=== PATIENT | female | born 1930 | race Caucasian/White ===

== ENCOUNTER 2017-08-19 06:56 | Inpatient (IN) | payer MEDICARE ==
[~2017-08-19] VITALS: Ht 170.2 cm; Wt 101.7 kg
[2017-08-19] VITALS (57 sets, daily range): BP systolic 58–231; BP diastolic 31–118; PULSE 90–132; RESP 15–35; TEMP 98.3–101.6; O2SAT 85–96
[2017-08-19] MEDS ORDERED: PANT40TA3 PO (07:12)
[2017-08-19] MEDS ORDERED: VITA2000 PO (07:12)
[2017-08-19] MEDS ORDERED: HYDR12.57 PO (07:12)
[2017-08-19] MEDS ORDERED: METO25TA3 PO (07:12)
[2017-08-19] MEDS ORDERED: WARF4TAB51 PO (07:12)
[2017-08-19] MEDS ORDERED: CELE1CAP11 PO (07:12)
[2017-08-19] MEDS ORDERED: SODIUM CHLORID 0.9% 500 ML INJ 500 ML IV ONE ×5 (07:15→11:15)
[2017-08-19] MEDS ORDERED: ACETAMINOPHEN 325 MG TAB PO ONE (07:15)
--- NOTE | 2017-08-19 07:33 | RADRPT ---
EXAM DATE/TIME: 08/19/2017 07:15 [facility] COMPARISON: No previous studies available for comparison. INDICATIONS : Fever, weakness. MEDICAL HISTORY : Congestive heart failure. Hypertension Deep venous thrombosis. Diabetic. PE. GERD. SURGICAL HISTORY : Hysterectomy. Partial thyroidectomy. ENCOUNTER: Initial ACUITY: 2 days PAIN SCORE: 0/10 LOCATION: chest FINDINGS: A single view of the chest demonstrates the lungs to be symmetrically aerated without evidence of mas s, infiltrate or effusion. The cardiomediastinal contours are unremarkable. Osseous structures are intact. CONCLUSION: 1. No acute cardiopulmonary disease. William Nielson MD on August 19, 2017 at 7:31 Board Certified Radiologist. This report was verified electronically.
[2017-08-19 07:52] LABS: AUTOMATED NEUTROPHIL # 15.2 TH/MM3 (1.8-7.7); BASOPHIL # 0.3 TH/MM3 (0-0.2); BASOPHIL % 1.8 % (0.0-2.0); HEMATOCRIT 40.5 % (35.0-46.0); LYMPH % 2.1 % (9.0-44.0); LYMPHOCYTE # 0.4 TH/MM3 (1.0-4.8); MEAN CELL VOLUME 82.6 FL (80.0-100.0); MEAN CORPUSCULAR HEMOGLOBIN 26.2 PG (27.0-34.0); MEAN CORPUSCULAR HGB CONC 31.7 % (32.0-36.0); MONO % 4.6 % (0.0-8.0); NEUT % 91.5 % (16.0-70.0); PLATELET COUNT 128 TH/MM3 (150-450); RED CELL DISTRIBUTION WIDTH 14.6 % (11.6-17.2); WHITE BLOOD COUNT 16.8 TH/MM3 (4.0-11.0)
--- NOTE | 2017-08-19 08:00 | PD ---
HPI Chief Complaint: Cold / Flu Symptoms Time Seen by Provider: 07:05 Travel History International Travel<30 days: No Contact w/Intl Traveler<30days: No Traveled to known affect area: No History of Present Illness HPI 87-year-old female presents by ambulance with note of vomiting, body aches, cough and general ill feeling over the past 10 days. She has an exposure to someone who was flu positive. She states she had a flu shot this year. She denies any other concurrent complaints. She states she has not taken any of her medication for 2 days given how bad she has felt. [place] is down here for the winter. History is limited currently from patient as she states she doesn't remember some stuff. PFS Past Medical History Narrative Medical Confirmed with patient and reviewed with nurse Tasha Anticoagulant Therapy: Yes Atrial Fibrillation: Yes Cardiovascular Problems: Yes (A-FIb) Congestive Heart Failure: Yes Diabetes: Yes (diet controlled) Patient Takes Glucophage: No Deep Vein Thrombosis: Yes (possible) GERD: Yes Hypertension: Yes Respiratory: Yes (pulmonary embolism) Immunizations Current: Yes Influenza Vaccination: Yes Past Surgical History Narrative Surgical Confirmed with patient and reviewed with nurse Endocrine Surgery: Yes (partial thyroidectomy) Eye Surgery: Yes (cataracts) Hysterectomy: Yes Social History Alcohol Use: No Tobacco Use: No (never) Substance Use: No Allergies-Medications (Allergen,Severity, Reaction): Coded Allergies: Penicillins (Verified Allergy, Intermediate, rash, 08/19/17) Reported Meds & Prescriptions Reported Meds & Active Scripts Active Reported Pantoprazole (Pantoprazole Sodium) 40 Mg Tab 40 Mg PO DAILY Vitamin D3 (Cholecalciferol) 2,000 Unit Cap 2,000 Units PO DAILY Warfarin 2 Mg Tab 4 Mg PO DAILY Hydrochlorothiazide 12.5 Mg Cap 12.5 Mg PO DAILY Metoprolol Tartrate 25 Mg Tab 12.5 Mg PO BID Celecoxib 50 Mg Cap Unknown Dose PO BID Review of Systems ROS Limitations: Poor Historian Except as stated in HPI: all other systems reviewed are Neg Physical Exam Exam Limitations: Poor Historian Narrative GENERAL: Well-nourished, well-developed patient. SKIN: Warm and dry. HEAD: Normocephalic and atraumatic. EYES: No injection or drainage. ENT: No nasal drainage noted. NECK: Supple, trachea midline. CARDIOVASCULAR: irregular rate and rhythm RESPIRATORY: Breath sounds equal bilaterally. No accessory muscle use. GASTROINTESTINAL: Abdomen soft, non-tender, nondistended. EXTREMITIES: No edema. NEUROLOGICAL: Awake, moves all extremities and sensory grossly within normal limits. Normal speech. Data Data Last Documented VS Vital Signs Date Time Temp Pulse Resp B/P (MAP) Pulse Ox O2 Delivery O2 Flow Rate FiO2 08/19/17 09:05 114 18 96/62 (73) 94 Nasal Cannula 2.00 08/19/17 07:00 101.6 Orders Orders Sepsis Workup Initiated (08/19/17 ) Electrocardiogram (08/19/17 07:11) Complete Blood Count With Diff (08/19/17 07:11) Comprehensive Metabolic Panel (08/19/17 07:11) Prothrombin Time / Inr (Pt) (08/19/17 07:11) Act Partial Throm Time (Ptt) (08/19/17 07:11) Lactic Acid Sepsis Protocol (08/19/17 07:11) Magnesium (Mg) (08/19/17 07:11) Phosphorus (Po4) (08/19/17 07:11) Ckmb (Isoenzyme) Profile (08/19/17 07:11) Troponin I (08/19/17 07:11) Urinalysis - C+S If Indicated (08/19/17 07:11) Influenzae A/B Antigen (08/19/17 07:11) Blood Culture (08/19/17 07:11) Chest, Single Ap (08/19/17 07:11) Ecg Monitoring (08/19/17 07:11) Iv Access Insert/Monitor (08/19/17 07:11) Oximetry (08/19/17 07:11) Acetaminophen (Tylenol) (08/19/17 07:15) B-Type Natriuretic Peptide (08/19/17 07:11) Sodium Chlorid 0.9% 500 Ml Inj (Ns 500 M (08/19/17 07:15) Diltiazem Inj (Cardizem Inj) (08/19/17 08:15) CKMB (08/19/17 07:37) CKMB% (08/19/17 07:37) Potassium Chlor 20 Meq Premix (Kcl 20 Me (08/19/17 08:30) Vancomycin Inj (Vancomycin Inj) (08/19/17 08:17) Aztreonam Inj (Azactam Inj) (08/19/17 08:17) Metronidazole 500 Mg Inj (Flagyl 500 Mg (08/19/17 08:17) Sodium Chlorid 0.9% 500 Ml Inj (Ns 500 M (08/19/17 08:30) Urinary Catheter Insert/Apply (08/19/17 08:21) Sodium Chlorid 0.9% 500 Ml Inj (Ns 500 M (08/19/17 09:30) Admit Order (Ed Use Only) (08/19/17 09:19) Labs Laboratory Tests Test 08/19/17 07:37 08/19/17 09:00 White Blood Count 16.8 TH/MM3 Red Blood Count 4.90 MIL/MM3 Hemoglobin 12.8 GM/DL Hematocrit 40.5 % Mean Corpuscular Volume 82.6 FL Mean Corpuscular Hemoglobin 26.2 PG Mean Corpuscular Hemoglobin Concent 31.7 % Red Cell Distribution Width 14.6 % Platelet Count 128 TH/MM3 Mean Platelet Volume 9.3 FL Neutrophils (%) (Auto) 91.5 % Lymphocytes (%) (Auto) 2.1 % Monocytes (%) (Auto) 4.6 % Eosinophils (%) (Auto) 0.0 % Basophils (%) (Auto) 1.8 % Neutrophils # (Auto) 15.2 TH/MM3 Lymphocytes # (Auto) 0.4 TH/MM3 Monocytes # (Auto) 0.8 TH/MM3 Eosinophils # (Auto) 0.0 TH/MM3 Basophils # (Auto) 0.3 TH/MM3 CBC Comment AUTO DIFF Differential Comment FINAL DIFF MANUAL Platelet Estimate LOW Platelet Morphology Comment NORMAL Prothrombin Time 20.3 SEC Prothromb Time International Ratio 2.0 RATIO Activated Partial Thromboplast Time 36.1 SEC Blood Urea Nitrogen 16 MG/DL Creatinine 1.20 MG/DL Random Glucose 140 MG/DL Total Protein 6.7 GM/DL Albumin 2.7 GM/DL Calcium Level 7.7 MG/DL Phosphorus Level 1.1 MG/DL Magnesium Level 1.3 MG/DL Alkaline Phosphatase 64 U/L Aspartate Amino Transf (AST/SGOT) 21 U/L Alanine Aminotransferase (ALT/SGPT) 20 U/L Total Bilirubin 1.8 MG/DL Sodium Level 136 MEQ/L Potassium Level 2.5 MEQ/L Chloride Level 102 MEQ/L Carbon Dioxide Level 21.7 MEQ/L Anion Gap 12 MEQ/L Estimat Glomerular Filtration Rate 42 ML/MIN Lactic Acid Level 2.4 mmol/L Total Creatine Kinase 204 U/L Creatine Kinase MB 0.8 NG/ML Creatine Kinase MB % 0.4 % Troponin I 0.04 NG/ML B-Type Natriuretic Peptide 540 PG/ML Urine Collection Type CATH Urine Color YELLOW Urine Turbidity SLIGHT Urine pH 6.0 Urine Specific Ralph 1.016 Urine Protein 300 OR GREATER mg/dL Urine Glucose (UA) NEG mg/dL Urine Ketones TRACE mg/dL Urine Occult Blood LARGE Urine Nitrite NEG Urine Bilirubin NEG Urine Leukocyte Esterase SMALL Urine RBC 25-49 /hpf Urine WBC INNUM /hpf Urine WBC Clumps MOD Urine Bacteria MANY /hpf Microscopic Urinalysis Comment CULTURE INDICATED Urine Collection Time 09:00 [facility] Medical Decision Making Medical Screen Exam Complete: Yes Emergency Medical Condition: Yes Medical Record Reviewed: Yes (past history confirmed) Interpretation(s) EKG is atrial fibrillation at 120 without STEMI criteria CBC & BMP Diagram 08/19/17 07:37 Total Protein 6.7, Albumin 2.7 L, Calcium Level 7.7 L, Phosphorus Level 1.1 L, Magnesium Level 1.3 L, Alkaline Phosphatase 64, Aspartate Amino Transf (AST/SGOT ) 21, Alanine Aminotransferase (ALT/SGPT) 20, Total Bilirubin 1.8 H Last 24 hours Impressions Chest X-Ray 08/19/17 0711 Signed Impressions: Service Date/Time: Saturday, August 19, 2017 07:15 - CONCLUSION: 1. No acute cardiopulmonary disease. William Nielson MD ua with uti Last 24 hours Impressions Chest X-Ray 08/19/17 0711 Signed Impressions: Service Date/Time: Saturday, August 19, 2017 07:15 - CONCLUSION: 1. No acute cardiopulmonary disease. William Nielson MD Abdomen/Pelvis CT 08/19/17 0000 Signed Impressions: Service Date/Time: Saturday, August 19, 2017 10:06 - CONCLUSION: Right kidney is enlarged with marked perinephric stranding may be related to recent obstruction. I do not see any active stone either in the collecting system of the right ureter. There is a Hendricks catheter in the bladder also without evidence of stone. No other stones are noted. 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 There may be a small splenic arterial aneurysm as well also benign and does not need workup. Ronni Dove MD Differential Diagnosis Renal failure, URI, pneumonia, heart failure, electrolyte abnormality Narrative Course Will check blood work, chest x-ray, influenza and dose with 500 cc normal saline bolus while awaiting chest x-ray and initial blood work as patient has already had 800 cc with the ambulance team will give low dose of cardizem of 10mg for heart rate control as off meds, patient with elevated lactate with multiple Sirs criteria, will give broad- spectrum coverage with aztreonam, Flagyl, vancomycin while awaiting workup, will repeat 500 cc normal saline bolus, patient has critically low potassium so we'll start replacement of this as well and she will need admission to the hospital Had nurse cycle blood pressure before Cardizem and was systolic of 96 so Cardizem was held. We'll give additional IV fluids. We'll monitor in the ICU area. Patient here has had no episodes of emesis. She was updated and agrees to plan Urinalysis shows signs of infection. Given hypotension will discuss with pharmacy adding gentamicin. After discussion with pharmacy they recommend gentamicin 80 mg IV 1 and they will follow along for medication adjustment. Patient will get additional IV fluids. Admitting attending updated. He agrees to adding on CT scan abdomen pelvis as well to rule out kidney stone or other intra-abdominal process with urinary tract infection. He will place pharmacy consult. Patient does state that she recently had a urinary tract infection and followed with Dr. monsalve now that her is in the room and able to provide additional history. patient has not had her 30ml/kg yet and still hypotensive so will repeat ivf and monitor Critical Care Narrative Aggregate critical care time was 45 minutes. Time to perform other separately billable procedures was not included in the critical care time. My time did not include minutes spent treating any other patients simultaneously or on activities that did not directly contribute to the patient's treatment. The services I provided to this patient were to treat and/or prevent clinically significant deterioration that could result in: Septic shock, I provided critical care services requiring my management, as noted below: Chart data review, documentation time, medication orders and management, vital sign assessments/reviewing monitor data, ordering and reviewing lab tests, ordering and interpreting/reviewing x-rays and diagnostic studies, care of the patient and discussion of the patient with the admitting physicians. Sepsis Criteria SIRS Criteria (2 or more): Temp > 100.9 or < 96.8, Heart rate over 90, WBC > 24857, < 4000 or > 10% bands Sepsis Criteria (SIRS+source): Infect source susp/known Severe Sepsis (+one): Lactate >2 Criteria Outcome: Meets severe sepsis criteria Physician Communication Physician Communication dr trevizo agrees to admit, will place in icu given pressure now dr trevizo will place pharmacy consult and updated Diagnosis Primary Impression: Sepsis Qualified Codes: A41.9 - Sepsis, unspecified organism Additional Impressions: Hypokalemia Atrial fibrillation with RVR Pyelonephritis Admitting Information Admitting Physician Requests: Admit Christine James MD Aug 19, 2017 08:00
[2017-08-19 08:09] LABS: APTT (PATIENT) 36.1 SEC (24.3-30.1); PROTHROMBIN TIME - PATIENT 20.3 SEC (9.8-11.6)
[2017-08-19 08:11] LABS: HEMO FLAGS AUTO DIFF
[2017-08-19 08:15] LABS: ALT (GPT) 20 U/L (10-53); AST (GOT) 21 U/L (15-37); BLOOD UREA NITROGEN 16 MG/DL (7-18); CHLORIDE 102 MEQ/L (98-107); GLOMERULAR FILTRATION RATE 42 ML/MIN (>89); MAGNESIUM 1.3 MG/DL (1.5-2.5); SODIUM (NA) 136 MEQ/L (136-145); TOTAL BILIRUBIN ADULT 1.8 MG/DL (0.2-1.0)
[2017-08-19] MEDS ORDERED: DILTIAZEM HCL 25 MG/5 ML VIAL IV ONE (08:15)
[2017-08-19 08:17] LABS: POTASSIUM 2.5 MEQ/L (3.5-5.1)
[2017-08-19] MEDS ORDERED: AZTREONAM INJ 2,000 MG in SODIUM CHLORIDE 0.9% INJ 100 ML IV STA (08:17)
[2017-08-19] MEDS ORDERED: VANCOMYCIN INJ 1,000 MG in SODIUM CHLOR 0.9% 250 ML INJ 250 ML IV STA (08:17)
[2017-08-19] MEDS ORDERED: metroNIDAZOLE 500 MG INJ 100 ML IV STA (08:17)
[2017-08-19 08:19] LABS: ALKALINE PHOSPHATASE 64 U/L (45-117); ANION GAP 12 MEQ/L (5-15); BICARBONATE 21.7 MEQ/L (21.0-32.0); CREATINE KINASE 204 U/L (26-192)
[2017-08-19] MEDS ORDERED: POTASSIUM CHLOR 20 MEQ PREMIX 100 ML IV ONE (08:30)
[2017-08-19 08:48] LABS: CKMB 0.8 NG/ML (0.5-3.6)
[2017-08-19 09:11] LABS: PLATELET ESTIMATE SMEAR LOW (NORMAL); PLATELET MORPHOLOGY NORMAL (NORMAL); SCAN/DIFF FINAL DIFF MANUAL
[2017-08-19 09:18] LABS: BLOOD, URINE LARGE (NEG); GLUCOSE,URINE NEG (NEG); KETONE, URINE TRACE mg/dL (NEG); NITRITE,URINE NEG (NEG)
[2017-08-19 09:22] LABS: METHOD OF COLLECTION CATH; URINE COLOR YELLOW (YELLW/STRAW)
[2017-08-19 09:23] LABS: BACTERIA, URINE MANY /hpf; COMMENT (UR) CULTURE INDICATED; CULTURE IF INDICATED CULTURE INDICATED; WBC, URINE INNUM /hpf (0-5)
[2017-08-19] MEDS ORDERED: MAGNESIUM HYDROXIDE SUSP 30 ML CUP PO PRN (09:30)
[2017-08-19] MEDS ORDERED: BISACODYL 10 MG SUPP RECTAL PRN (09:30)
[2017-08-19] MEDS ORDERED: NALOXONE HCL 0.4 MG/ML AMP IV PUSH PRN (09:30)
[2017-08-19] MEDS ORDERED: SODIUM CHLORIDE 0.9% FLUSH 10 ML FLUSH IV FLUSH PRN (09:30)
[2017-08-19] MEDS ORDERED: LACTULOSE SYRUP 20 GM/30 ML CUP PO PRN (09:30)
[2017-08-19] MEDS ORDERED: SENNOSIDES 8.6 MG TAB PO PRN (09:30)
[2017-08-19] MEDS ORDERED: GENTAMICIN SULFATE 80 MG/2 ML VIAL IV ONE ×2 (09:45→12:30)
[2017-08-19] MEDS ORDERED: Gentamicin Consult Pharmacy 1 EA OTHER SCH (09:45)
[2017-08-19 09:47] LABS: LACTIC ACID GHOST NOT REPORTABLE
--- NOTE | 2017-08-19 10:30 | RADRPT ---
EXAM DATE/TIME: 08/19/2017 10:06 [facility] COMPARISON: No previous studies available for comparison. INDICATIONS : Gemeralized bodyaches and vomiting. ORAL CONTRAST: No oral contrast ingested. RADIATION DOSE: 24.39 CTDIvol (mGy) MEDICAL HISTORY : Congestive heart failure. Deep venous thrombosis. Gastroesophageal reflux disease.Anticoagulant thera py. Hypertension. Diabetes. SURGICAL HISTORY : Hysterectomy. Thyroidectomy. ENCOUNTER: Initial ACUITY: 2 weeks PAIN SCALE: 4/10 LOCATION: pelvis abdomen TECHNIQUE: Volumetric scanning of the abdomen and pelvis was performed. Using automated exposure control and ad justment of the mA and/or kV according to patient size, radiation dose was kept as low as reasonably achievable to obtain optimal diagnostic quality images. DICOM format image data is available electro nically for review and comparison. FINDINGS: LOWER LUNGS: The visualized lower lungs are clear. LIVER: Homogeneous density a few small hypodensities on this unenhanced study probably small cysts.. There is no dilation of the biliary tree. No calcified gallstones. SPLEEN: Normal size without lesion. PANCREAS: Within normal limits. KIDNEYS: Right kidney is abnormal. It is larger than the left and is showing some perinephric stranding and hy dronephrosis. I do not see any stone within the collecting system and the ureter is not appreciably d ilated. There is a Hendricks catheter in a decompressed bladder. Left side unremarkable. There are small bilateral renal cysts. 1 cm curvilinear calcification in the superior right hilum could be renal tatyana rial aneurysm almost always asymptomatic in a woman this age ADRENAL GLANDS: Within normal limits. VASCULAR: There is no aortic aneurysm. BOWEL/MESENTERY: The stomach, small bowel, and colon demonstrate no acute abnormality. There is no free intraperitone al air or fluid. ABDOMINAL WALL: Within normal limits. RETROPERITONEUM: There is no lymphadenopathy. BLADDER: Hendricks catheter in place. REPRODUCTIVE: Within normal limits. INGUINAL: There is no lymphadenopathy or hernia. MUSCULOSKELETAL: Within normal limits for patient age. CONCLUSION: Right kidney is enlarged with marked perinephric stranding may be related to recent obstruction. I do not see any active stone either in the collecting system of the right ureter. There is a Hendricks karsten ter in the bladder also without evidence of stone. No other stones are noted. 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 There may be a small splenic arterial ane urysm as well also benign and does not need workup. Ronni Dove MD on August 19, 2017 at 10:20 Board Certified Radiologist. This report was verified electronically.
[2017-08-19] MEDS ORDERED: ENOXAPARIN SODIUM 40 MG/0.4 ML SYRINGE SQ SCH (11:00)
[2017-08-19] MEDS: POTASSIUM CHLOR 20 MEQ PREMIX 100 ML IV SCH ×2 (11:10→13:17)
[2017-08-19] MEDS: SODIUM CHLOR 0.9% 1000 ML INJ 1,000 ML IV SCH ×3 (12:16→21:57)
[2017-08-19] MEDS: MAGNESIUM SULFATE 1 GM PREMIX 100 ML IV SCH ×4 (12:29→17:00)
[2017-08-19] MEDS ORDERED: SODIUM CHLOR 0.9% 1000 ML INJ 1,000 ML IV ONE ×3 (12:30→22:00)
[2017-08-19] MEDS ORDERED: GENTAMICIN/SOD CHL 80 MG/100 ML IV ONE (12:45)
[2017-08-19] MEDS ORDERED: CHLORHEXIDINE GLUCONATE 2 % 1 PACK (2 CLOTHS)(extra cloths) TOPICAL PRN (12:45)
--- NOTE | 2017-08-19 13:16 | HHI.HP ---
[facility] Primary Care Physician Non-Staff Admission Diagnosis sepsis, hypokalemia Diagnoses: Chief Complaint: Generalized weakness, cough, chills and fever. Travel History International Travel<30 Days: No Contact w/Intl Traveler <30 Da: No Traveled to Known Affected Are: No Sepsis Criteria SIRS Criteria (2 or more): Temp > 100.9 or < 96.8, Heart rate over 90, WBC > 57534, < 4000 or > 10% bands Sepsis Criteria (SIRS+source): Infect source susp/known Severe Sepsis (+one): Lactate >2 Septic Shock Criteria: Unresponsive to 30ml/kg fluid bolus Criteria Outcome: Meets SIRS criteria, Meets sepsis criteria, Meets severe sepsis criteria, Meets septic shock criteria History of Present Illness Ms. Jeffries is a pleasant 87-year-old female with a history of atrial fibrillation who presented to the emergency department on 12/18/2016 due to generalized weakness, body aches and mild fever as well as chills. Approximately 4 weeks prior to this admission patient experienced flulike symptoms. Her daughter had flu. On 08/16/2017 patient felt very tired and weak. She also had stomach upset and dry heaves. In the last few days she has been experiencing low-grade fever and chills. She also reports some cough as well. She also reports some discomfort on the right side of her back. She reported hematuria in June. She does report increased urinary frequency but no dysuria or hematuria. ED workup indicated possible UTI. On arrival patient's blood pressure 135/66, heart rate 123, temperature 101.6, respiration 20, pulse oximetry 93% to 95% on 2 L of oxygen. WBC 16.8 with neutrophils 91.5%. Sodium 136, potassium 2.5, creatinine 1.20, lactic acid 2.4 later increased to 3.0. Urinalysis was indicative of UTI. CT abdomen pelvis indicated right-sided perinephric stranding. Agent was subsequently admitted to ICU. Patient received fluid boluses in the ED, aztreonam, Flagyl, vancomycin and gentamicin in the ED. Review of Systems Except as stated in HPI: all other systems reviewed are Neg Past Family Social History Past Medical History Atrial fibrillation, hypertension, pulmonary embolism Past Surgical History Partial thyroidectomy, cataract surgery, hysterectomy Reported Medications Pantoprazole (Pantoprazole Sodium) 40 Mg Tab 40 Mg PO DAILY Vitamin D3 (Cholecalciferol) 2,000 Unit Cap 2,000 Units PO DAILY Warfarin 2 Mg Tab 4 Mg PO DAILY Hydrochlorothiazide 12.5 Mg Cap 12.5 Mg PO DAILY Metoprolol Tartrate 25 Mg Tab 12.5 Mg PO BID Celecoxib 50 Mg Cap Unknown Dose PO BID Allergies: Coded Allergies: Penicillins (Verified Allergy, Intermediate, rash, 08/19/17) Family History No family history of cancer, Alzheimer's or Parkinson's. Social History Patient denies using tobacco, alcohol or illicit drugs. Physical Exam Vital Signs Vital Signs Date Time Temp Pulse Resp B/P (MAP) Pulse Ox O2 Delivery O2 Flow Rate FiO2 08/19/17 12:07 95 Nasal Cannula 2.00 08/19/17 11:43 86 18 81/56 (64) 95 2.00 08/19/17 10:58 92 18 82/57 (65) 94 Nasal Cannula 2.00 08/19/17 10:05 101 19 92/61 (71) 94 Nasal Cannula 2.00 08/19/17 09:05 114 18 96/62 (73) 94 Nasal Cannula 2.00 08/19/17 08:05 116 18 100/68 (79) 95 Nasal Cannula 2.00 08/19/17 07:35 124 18 99/59 (72) 95 Nasal Cannula 2.00 08/19/17 07:26 120 16 94 Room Air 08/19/17 07:15 16 94 Room Air 08/19/17 07:05 122 18 124/71 (88) 95 Nasal Cannula 2.00 08/19/17 07:00 101.6 123 20 135/66 (89) 93 Physical Exam GENERAL: Patient appears somewhat lethargic. SKIN: No rashes, ecchymoses or lesions. Warm and dry. HEAD: Atraumatic. Normocephalic. No temporal or scalp tenderness. EYES: Pupils equal round and reactive. No injection or drainage. ENT: Nose without bleeding, purulent drainage or septal hematoma. Airway patent. NECK: Trachea midline. No lymphadenopathy. Supple, nontender, no meningeal signs. CARDIOVASCULAR: Regular rhythm, tachycardic without murmurs, gallops, or rubs. No JVD. RESPIRATORY: Clear to auscultation. Breath sounds equal bilaterally. No wheezes , rales, or rhonchi. GASTROINTESTINAL: Abdomen soft, non-tender, nondistended. No guarding. MUSCULOSKELETAL: Extremities without clubbing, cyanosis, or edema. NEUROLOGICAL: Awake and alert. Cranial nerves II through XII intact. No focal neurological deficits. Normal speech. Laboratory Laboratory Tests Test 08/19/17 07:37 08/19/17 09:00 08/19/17 10:50 08/19/17 12:50 White Blood Count 16.8 Red Blood Count 4.90 Hemoglobin 12.8 Hematocrit 40.5 Mean Corpuscular Volume 82.6 Mean Corpuscular Hemoglobin 26.2 Mean Corpuscular Hemoglobin Concent 31.7 Red Cell Distribution Width 14.6 Platelet Count 128 Mean Platelet Volume 9.3 Neutrophils (%) (Auto) 91.5 Lymphocytes (%) (Auto) 2.1 Monocytes (%) (Auto) 4.6 Eosinophils (%) (Auto) 0.0 Basophils (%) (Auto) 1.8 Neutrophils # (Auto) 15.2 Lymphocytes # (Auto) 0.4 Monocytes # (Auto) 0.8 Eosinophils # (Auto) 0.0 Basophils # (Auto) 0.3 CBC Comment AUTO DIFF Differential Comment FINAL DIFF MANUAL Platelet Estimate LOW Platelet Morphology Comment NORMAL Prothrombin Time 20.3 Prothromb Time International Ratio 2.0 Activated Partial Thromboplast Time 36.1 Blood Urea Nitrogen 16 Creatinine 1.20 Random Glucose 140 Total Protein 6.7 Albumin 2.7 Calcium Level 7.7 Phosphorus Level 1.1 Magnesium Level 1.3 Alkaline Phosphatase 64 Aspartate Amino Transf (AST/SGOT) 21 Alanine Aminotransferase (ALT/SGPT) 20 Total Bilirubin 1.8 Sodium Level 136 Potassium Level 2.5 Chloride Level 102 Carbon Dioxide Level 21.7 Anion Gap 12 Estimat Glomerular Filtration Rate 42 Lactic Acid Level 2.4 2.2 Total Creatine Kinase 204 Creatine Kinase MB 0.8 Creatine Kinase MB % 0.4 Troponin I 0.04 B-Type Natriuretic Peptide 540 Urine Collection Type CATH Urine Color YELLOW Urine Turbidity SLIGHT Urine pH 6.0 Urine Specific [place] 1.016 Urine Protein 300 OR GREATER Urine Glucose (UA) NEG Urine Ketones TRACE Urine Occult Blood LARGE Urine Nitrite NEG Urine Bilirubin NEG Urine Leukocyte Esterase SMALL Urine RBC 25-49 Urine WBC INNUM Urine WBC Clumps MOD Urine Bacteria MANY Microscopic Urinalysis Comment CULTURE INDICATED Urine Collection Time 09:00 Date/Time Source Procedure Growth Status 08/19/17 07:50 Blood Peripheral Aerobic Blood Culture Pending Received 08/19/17 07:50 Blood Peripheral Anaerobic Blood Culture Pending Received 08/19/17 07:43 Nasal Aspirate Influenza Types A,B Antigen (ANNE) - Final NEGATIVE FOR FLU A AND B ANTIGEN.... Complete 08/19/17 09:00 Urine Clean Catch Urine Culture Pending Received Result Diagram: 08/19/17 0737 08/19/1737 Imaging Last Impressions Chest X-Ray 08/19/17 0711 Signed Impressions: Service Date/Time: Saturday, August 19, 2017 07:15 - CONCLUSION: 1. No acute cardiopulmonary disease. William Nielson MD Abdomen/Pelvis CT 08/19/17 0000 Signed Impressions: Service Date/Time: Saturday, August 19, 2017 10:06 - CONCLUSION: Right kidney is enlarged with marked perinephric stranding may be related to recent obstruction. I do not see any active stone either in the collecting system of the right ureter. There is a Hendricks catheter in the bladder also without evidence of stone. No other stones are noted. 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 There may be a small splenic arterial aneurysm as well also benign and does not need workup. MD Mazin Bundy VTE Risk Assessment Caprini VTE Risk Assessment: Mod/High Risk (score >= 2) Caprini Risk Assessment Model Point Value = 1 Point Value = 2 Point Value = 3 Point Value = 5 Age 41-60 Minor surgery BMI > 25 kg/m2 Swollen legs Varicose veins or History of unexplained or recurrent spontaneous Oral contraceptives or hormone replacement Sepsis (< 1 month) Serious lung disease, including pneumonia (< 1 month) Abnormal pulmonary function Acute myocardial infarction Congestive heart failure (< 1 month) History of inflammatory bowel disease Medical patient at bed rest Age 61-74 Arthroscopic surgery Major open surgery (> 45 min) Laparoscopic surgery (> 45 min) Malignancy Confined to bed (> 72 hours) Immobilizing plaster cast Central venous access Age >= 75 History of VTE Family history of VTE Factor V Leiden Prothrombin [id number] Lupus anticoagulant Anticardiolipin antibodies Elevated serum homocysteine Heparin-induced thrombocytopenia Other congenital or acquired thrombophilia Stroke (< 1 month) Elective arthroplasty Hip, pelvis, or leg fracture Acute spinal cord injury (< 1 month) Prophylaxis Regimen Total Risk Factor Score Risk Level Prophylaxis Regimen 0-1 Low Early ambulation 2 Moderate Order ONE of the following: *Sequential Compression Device (SCD) *Heparin 5000 units SQ BID 3-4 Higher Order ONE of the following medications: *Heparin 5000 units SQ TID *Enoxaparin/Lovenox 40 mg SQ daily (WT < 150 kg, CrCl > 30 mL/min) *Enoxaparin/Lovenox 30 mg SQ daily (WT < 150 kg, CrCl > 10-29 mL/min) *Enoxaparin/Lovenox 30 mg SQ BID (WT < 150 kg, CrCl > 30 mL/min) AND/OR *Sequential Compression Device (SCD) 5 or more Highest Order ONE of the following medications: *Heparin 5000 units SQ TID (Preferred with Epidurals) *Enoxaparin/Lovenox 40 mg SQ daily (WT < 150 kg, CrCl > 30 mL/min) *Enoxaparin/Lovenox 30 mg SQ daily (WT < 150 kg, CrCl > 10-29 mL/min) *Enoxaparin/Lovenox 30 mg SQ BID (WT < 150 kg, CrCl > 30 mL/min) AND *Sequential Compression Device (SCD) Assessment and Plan Problem List: (1) Septic shock ICD Code: A41.9 - Sepsis, unspecified organism; R65.21 - Severe sepsis with septic shock (2) UTI (urinary tract infection) ICD Code: N39.0 - Urinary tract infection, site not specified Status: Acute (3) Atrial fibrillation with RVR ICD Code: I48.91 - Unspecified atrial fibrillation Status: Acute Assessment and Plan Ms. Jeffries is a pleasant 87-year-old female with a history of atrial fibrillation who presented to the emergency department on 08/19/2017 due to generalized weakness. She reported stomach upset, dry heaves, low-grade fever and chills. 4 weeks prior to this admission patient experienced flulike symptoms. Patient was admitted due to lethargy. ED workup indicated sepsis, UTI. Patient appeared to be very lethargic and was not responding well to fluid resuscitation. I evaluated patient multiple times including at night. Despite fluid resuscitation patient's blood pressure remained low. We give patient Levophed for several hours. Patient was also started on broad-spectrum antibiotics. Infectious disease was consulted. Total critical care time spent over 50 minutes. - Septic shock - due to complicated UTI. - Patient met criteria for sepsis (leukocytosis, tachycardia, fever and known infection) - Despite giving multiple boluses of fluid patient kept having hypotension. - We started her on Levophed at night due to hypotension in the range of 70s and lowest blood pressure being 58/42. - Patient received Levophed for several hours throughout the night and slowly weaned off. - I evaluated patient at the time of initial interview. I also came to the hospital at around 10:30 PM to reevaluate patient. - During my night visit, I discussed with nursing staff to slowly wean off Levophed. - Continue IV fluid. - Complicated UTI - Patient has received antibiotics in June 2017. Due to septic shock, we will start patient on broad spectrum abx. - Start Meropenem and Vancomycin. We will consult ID for further recommendations. - Acute kidney injury, mild - Severe Hypokalemia with potassium 2.5 - Hypomagnesemia - Creatinine 1.20. We will continue to monitor. Avoid nephrotoxins. - We'll replace potassium and magnesium with IV formulations. - Atrial fibrillation - Currently in the range of low 100s. With hypotension, it would be reasonable to hold off using any rate control medications for now. - Patient takes warfarin, INR 2.0 today. Full code. Lovenox today. Will start Warfarin tomorrow. Physician Certification 2 Midnight Certification Type: Admission for Inpatient Services Order for Inpatient Services The services are ordered in accordance with Medicare regulations or non- Medicare payer requirements, as applicable. In the case of services not specified as inpatient-only, they are appropriately provided as inpatient services in accordance with the 2-midnight benchmark. Estimated LOS (days): 2 days is the estimated time the patient will need to remain in the hospital, assuming treatment plan goals are met and no additional complications. Post-Hospital Plan: Not yet determined Problem Qualifiers (1) UTI (urinary tract infection): Qualified Codes: N39.0 - Urinary tract infection, site not specified Nicole Gill DO Aug 19, 2017 1:16 pm
[2017-08-19] MEDS: ACETAMINOPHEN 325 MG TAB PO PRN (13:17)
[2017-08-19] MEDS ORDERED: Vancomycin Consult Pharmacy 1 EA OTHER SCH (13:30)
[2017-08-19] MEDS ORDERED: MISCELLANEOUS PHARMACY INFORMATION XX PRN (13:30)
[2017-08-19] MEDS ORDERED: ASP: Documented allergy to Penicillins or Cephalosporins PRN (13:30)
[2017-08-19] MEDS: ONDANSETRON HCL 4 MG/2 ML VIAL IVP PRN (14:06)
--- NOTE | 2017-08-19 15:52 | EKG ---
Date Performed: 08/19/2017 Time Performed: 07:26:53 PTAGE: 87 years EKG: ATRIAL FIBRILLATION WITH RAPID VENTRICULAR RESPONSE LOW QRS VOLTAGE IN PRECORDIAL LEADS SEP AYDIN MYOCARDIAL INFARCTION Clinical corrolation is suggested. ABNORMAL ECG NO PREVIOUS TRACING DOCTOR: Magnus Mathew Interpretating Date/Time 08/19/2017 15:50:56
[2017-08-19] MEDS: MEROPENEM INJ 1,000 MG in SODIUM CHLORIDE 0.9% INJ 100 ML IV SCH (15:58)
[2017-08-19] MEDS ORDERED: NOREPINEPHRINE-DEXTROSE DRIP 250 ML IV PRN (20:30)
[2017-08-19] MEDS ORDERED: TERBUTALINE INJ 1 MG/ML AMP SQ PRN (20:30)
[2017-08-19] MEDS: SODIUM CHLORIDE 0.9% FLUSH 10 ML FLUSH IV FLUSH SCH (21:00)
--- NOTE | 2017-08-19 21:36 | RADRPT ---
EXAM DATE/TIME: 08/19/2017 21:18 [place] COMPARISON: CHEST SINGLE AP, August 19, 2017, 7:15. INDICATIONS : Congestion. Short of breath. MEDICAL HISTORY : Congestive heart failure. Deep venous thrombosis. Gastroesophageal reflux disease.Anticoagulant thera py. Hypertension. Diabetes. SURGICAL HISTORY : Hysterectomy. Thyroidectomy. ENCOUNTER: Subsequent ACUITY: 2 days PAIN SCORE: 0/10 LOCATION: Bilateral chest FINDINGS: Patient is rotated towards the left. When taking into account patient rotation, the lungs are symmet rically aerated. No focal infiltrate seen. Both hemidiaphragms are well delineated. The heart is n ormal size. CONCLUSION: The lungs are clear. Ryan Grey MD on August 19, 2017 at 21:34 Board Certified Radiologist. This report was verified electronically.
[2017-08-19] MEDS ORDERED: SODIUM CHLOR 0.9% 1000 ML INJ 1,000 ML IV PRN (22:00)
--- NOTE | 2017-08-19 22:19 | PD.ID.CON ---
History of Present Illness Service ID Consult Requested By Dr Gill Reason for Consult UTI Primary Care Physician Non-Staff Diagnoses: History of Present Illness pt is a poor historian 87 yo y/o with type 2 diabetes she reportedly got sick since Thanksgiving initially with flu-like smx, lately she noted some cloudy dark coloured urine and some discomfort in R side of the back She had + urine clx doen as o/p and was taking unspecified abx SHe came to the hospital because she felt achy "all over" On presentation febrile up to 101.6 F with leukocytosis up to 16 K and lactic acidosis up to 3.0 UA with innumerable WBC, urine and blood clx are still P She is hypotensive with BP dropping into 50s/40s and she was started on Levaphed that was weaned down to 2 mcgs She is on broad spectrum abx she thinks that she improvd because her mind is "clearer now" Reports no h/o kidney stones CT showed right kidney enlarged with marked perinephric stranding may be related to recent obstruction Review of Systems ROS Limitations: Poor Historian Except as stated in HPI: all other systems reviewed are Neg Past Family Social History Allergies: Coded Allergies: Penicillins (Verified Allergy, Intermediate, rash, 08/19/17) Past Medical History DM hypothryoidism Past Surgical History hyroidectomy Active Ordered Medications Medications where reviewed in EMR Antibiotics Include: vancomycin meropenem Physical Exam Vital Signs Vital Signs Date Time Temp Pulse Resp B/P (MAP) Pulse Ox O2 Delivery O2 Flow Rate FiO2 08/19/17 20:50 97 71/52 08/19/17 20:48 106 22 76/52 (60) 94 08/19/17 20:31 104 22 71/47 (55) 94 08/19/17 20:16 106 22 59/39 (46) 93 08/19/17 20:01 98.3 104 23 58/42 (47) 93 08/19/17 20:00 92 08/19/17 19:16 106 24 81/60 (67) 92 08/19/17 19:01 112 21 80/57 (65) 94 08/19/17 19:00 94 Nasal Cannula 3.00 08/19/17 18:46 112 25 79/47 (58) 94 08/19/17 18:42 112 28 74/57 (63) 93 08/19/17 18:37 108 23 73/47 (56) 92 08/19/17 18:35 108 25 66/52 (57) 93 08/19/17 18:31 110 26 79/50 (60) 93 08/19/17 18:00 108 08/19/17 18:00 108 27 98/48 (65) 92 08/19/17 17:35 104 26 103/53 (70) 93 08/19/17 17:31 106 27 77/50 (59) 92 08/19/17 17:03 108 28 81/49 (60) 94 08/19/17 16:32 106 30 85/54 (64) 92 08/19/17 16:31 108 31 78/57 (64) 94 08/19/17 16:01 99.1 102 27 91/58 (69) 93 08/19/17 16:00 102 08/19/17 15:31 104 28 102/58 (73) 92 08/19/17 15:01 106 28 105/59 (74) 92 08/19/17 14:31 108 21 115/66 (82) 92 08/19/17 14:12 108 26 145/71 (95) 92 08/19/17 14:00 104 08/19/17 13:57 108 29 160/84 (109) 92 08/19/17 13:46 124 33 205/82 (123) 89 08/19/17 13:42 132 34 231/108 (149) 91 08/19/17 13:32 128 33 202/95 (130) 90 08/19/17 13:30 120 35 199/118 (145) 89 08/19/17 13:00 104 27 126/61 (82) 94 08/19/17 12:30 92 20 100/66 (77) 95 08/19/17 12:07 95 Nasal Cannula 2.00 08/19/17 12:00 93 Nasal Cannula 2.00 08/19/17 12:00 98.3 92 19 91/60 (70) 95 08/19/17 12:00 95 08/19/17 11:43 102 19 98/67 (77) 08/19/17 11:43 86 18 81/56 (64) 95 2.00 08/19/17 10:58 92 18 82/57 (65) 94 Nasal Cannula 2.00 08/19/17 10:05 101 19 92/61 (71) 94 Nasal Cannula 2.00 08/19/17 09:05 114 18 96/62 (73) 94 Nasal Cannula 2.00 08/19/17 08:05 116 18 100/68 (79) 95 Nasal Cannula 2.00 08/19/17 07:35 124 18 99/59 (72) 95 Nasal Cannula 2.00 08/19/17 07:26 120 16 94 Room Air 08/19/17 07:15 16 94 Room Air 08/19/17 07:05 122 18 124/71 (88) 95 Nasal Cannula 2.00 08/19/17 07:00 101.6 123 20 135/66 (89) 93 Physical Exam CONSTITUTIONAL/GENERAL: This is an obese elderly patient, in no apparent distress. TUBES/LINES/DRAINS: SKIN: No jaundice, rashes, or lesions. Ecchymoses on upper extremities. No wounds seen anteriorly. Skin temperature appropriate. Not diaphoretic. HEAD: Atraumatic. Normocephalic. EYES: Pupils equal and round and reactive. Extraocular motions intact. No scleral icterus. No injection or drainage. Fundi not examined. ENT: Hearing grossly normal. Nose without bleeding or purulent drainage. Throat without visible erythema, exudates, masses, or lesions. NECK: Trachea midline. Supple, nontender. No palpable thyroid enlargement or nodularity. CARDIOVASCULAR: Regular rate and rhythm without murmurs, gallops, or rubs. No JVD. Peripheral pulses symmetric. + perifery appears well perfused RESPIRATORY/CHEST: Symmetric, unlabored respirations. Clear to auscultation. Breath sounds equal bilaterally. No wheezes, rales, or rhonchi. GASTROINTESTINAL: Abdomen soft, non-tender, nondistended. No hepato-splenomegaly , or palpable masses. No guarding. Bowel sounds present. GENITOURINARY: Without palpable bladder distension. Hendricks catheter in place with very cloudy purulent appearent urine + mildly tender to R flank deep palpation MUSCULOSKELETAL: Extremities without clubbing, cyanosis, or edema. No joint tenderness or effusion noted. No calf tenderness. No mottling or clubbing. LYMPHATICS: No palpable cervical or supraclavicular adenopathy. NEUROLOGICAL: Awake and alert. Motor and sensory grossly within normal limits. Follows commands. Clear speech . Moves all extremities. PSYCHIATRIC: No obvious anxiety/depression. no apparent hallucinations or other psychotic thought process. Laboratory Laboratory Tests Test 08/19/17 07:37 08/19/17 09:00 08/19/17 10:50 08/19/17 12:50 White Blood Count 16.8 Red Blood Count 4.90 Hemoglobin 12.8 Hematocrit 40.5 Mean Corpuscular Volume 82.6 Mean Corpuscular Hemoglobin 26.2 Mean Corpuscular Hemoglobin Concent 31.7 Red Cell Distribution Width 14.6 Platelet Count 128 Mean Platelet Volume 9.3 Neutrophils (%) (Auto) 91.5 Lymphocytes (%) (Auto) 2.1 Monocytes (%) (Auto) 4.6 Eosinophils (%) (Auto) 0.0 Basophils (%) (Auto) 1.8 Neutrophils # (Auto) 15.2 Lymphocytes # (Auto) 0.4 Monocytes # (Auto) 0.8 Eosinophils # (Auto) 0.0 Basophils # (Auto) 0.3 CBC Comment AUTO DIFF Differential Comment FINAL DIFF MANUAL Platelet Estimate LOW Platelet Morphology Comment NORMAL Prothrombin Time 20.3 Prothromb Time International Ratio 2.0 Activated Partial Thromboplast Time 36.1 Blood Urea Nitrogen 16 Creatinine 1.20 Random Glucose 140 Total Protein 6.7 Albumin 2.7 Calcium Level 7.7 Phosphorus Level 1.1 Magnesium Level 1.3 Alkaline Phosphatase 64 Aspartate Amino Transf (AST/SGOT) 21 Alanine Aminotransferase (ALT/SGPT) 20 Total Bilirubin 1.8 Sodium Level 136 Potassium Level 2.5 Chloride Level 102 Carbon Dioxide Level 21.7 Anion Gap 12 Estimat Glomerular Filtration Rate 42 Lactic Acid Level 2.4 2.2 Total Creatine Kinase 204 Creatine Kinase MB 0.8 Creatine Kinase MB % 0.4 Troponin I 0.04 B-Type Natriuretic Peptide 540 Urine Collection Type CATH Urine Color YELLOW Urine Turbidity SLIGHT Urine pH 6.0 Urine Specific [place] 1.016 Urine Protein 300 OR GREATER Urine Glucose (UA) NEG Urine Ketones TRACE Urine Occult Blood LARGE Urine Nitrite NEG Urine Bilirubin NEG Urine Leukocyte Esterase SMALL Urine RBC 25-49 Urine WBC INNUM Urine WBC Clumps MOD Urine Bacteria MANY Microscopic Urinalysis Comment CULTURE INDICATED Urine Collection Time 09:00 Nasal Screen MRSA (PCR) MRSA NOT DETECTED Test 08/19/17 20:45 Lactic Acid Level 3.0 Date/Time Source Procedure Growth Status 08/19/17 07:50 Blood Peripheral Aerobic Blood Culture Pending Received 08/19/17 07:50 Blood Peripheral Anaerobic Blood Culture Pending Received 08/19/17 07:43 Nasal Aspirate Influenza Types A,B Antigen (ANNE) - Final NEGATIVE FOR FLU A AND B ANTIGEN.... Complete 08/19/17 09:00 Urine Clean Catch Urine Culture Pending Received Result Diagram: 08/19/17 0737 08/19/17 0737 Imaging Last Impressions Chest X-Ray 08/19/17 0711 Signed Impressions: Service Date/Time: Saturday, August 19, 2017 07:15 - CONCLUSION: 1. No acute cardiopulmonary disease. William Nielson MD Abdomen/Pelvis CT 08/19/17 0000 Signed Impressions: Service Date/Time: Saturday, August 19, 2017 10:06 - CONCLUSION: Right kidney is enlarged with marked perinephric stranding may be related to recent obstruction. I do not see any active stone either in the collecting system of the right ureter. There is a Hendricks catheter in the bladder also without evidence of stone. No other stones are noted. 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 There may be a small splenic arterial aneurysm as well also benign and does not need workup. Ronni Dove MD Assessment and Plan Assessment and Plan UTI, severe, complicated - CT with stigmata of recent obstruction of R kidney Sepsis with hypotension, Critically ill, unstable pt Self reported PCN allergy, but tolerates meropenm w/o issues cont current abnx monitor urine, blood clx Sabrina Andrews MD Aug 19, 2017 22:19
[2017-08-19 22:54] LABS: LACTIC ACID GHOST NOT REPORTABLE
[2017-08-20] VITALS (45 sets, daily range): BP systolic 83–169; BP diastolic 50–94; PULSE 70–116; RESP 12–26; TEMP 88.5–98.8; O2SAT 93–98
[2017-08-20] MEDS: MEROPENEM INJ 1,000 MG in SODIUM CHLORIDE 0.9% INJ 100 ML IV SCH ×2 (03:27→16:58)
[2017-08-20] MEDS: CHLORHEXIDINE GLUCONATE 2 % 1 PACK (2 CLOTHS)(taper/protocol) TOPICAL SCH (03:31)
[2017-08-20] MEDS: ACETAMINOPHEN 325 MG TAB PO PRN ×2 (04:56→14:04)
[2017-08-20 05:02] LABS: AUTOMATED NEUTROPHIL # 13.6 TH/MM3 (1.8-7.7); BASOPHIL # 0.2 TH/MM3 (0-0.2); BASOPHIL % 1.3 % (0.0-2.0); EOSINOPHIL % 0.3 % (0.0-4.0); HEMATOCRIT 36.8 % (35.0-46.0); LYMPH % 4.7 % (9.0-44.0); LYMPHOCYTE # 0.7 TH/MM3 (1.0-4.8); MEAN CELL VOLUME 83.9 FL (80.0-100.0); MEAN CORPUSCULAR HEMOGLOBIN 26.8 PG (27.0-34.0); MEAN CORPUSCULAR HGB CONC 31.9 % (32.0-36.0); MONO % 4.3 % (0.0-8.0); NEUT % 89.4 % (16.0-70.0); PLATELET COUNT 82 TH/MM3 (150-450); RED BLOOD COUNT 4.38 MIL/MM3 (4.00-5.30); WHITE BLOOD COUNT 15.3 TH/MM3 (4.0-11.0)
[2017-08-20 05:15] LABS: HEMO FLAGS AUTO DIFF
[2017-08-20 05:33] LABS: BICARBONATE 17.4 MEQ/L (21.0-32.0); POTASSIUM 3.3 MEQ/L (3.5-5.1)
[2017-08-20] MEDS ORDERED: VANCOMYCIN INJ 1,250 MG in SODIUM CHLOR 0.9% 250 ML INJ 250 ML IV SCH (06:00)
[2017-08-20 06:42] LABS: CALCIUM-PROTEIN CORRECTED 7.5 MG/DL (8.5-10.1)
[2017-08-20 07:20] LABS: PLATELET ESTIMATE SMEAR LOW (NORMAL); PLATELET MORPHOLOGY NORMAL (NORMAL); SCAN/DIFF AUTO DIFF CONFIRMED
[2017-08-20] MEDS: SODIUM CHLORIDE 0.9% FLUSH 10 ML FLUSH IV FLUSH SCH ×2 (07:30→21:04)
[2017-08-20] MEDS: SODIUM CHLOR 0.9% 1000 ML INJ 1,000 ML IV SCH ×2 (07:30→15:56)
[2017-08-20] MEDS ORDERED: ENOXAPARIN SODIUM 30 MG/0.3 ML SYRINGE SQ SCH (11:00)
[2017-08-20] MEDS ORDERED: WARFARIN SOD 2 MG TAB PO SCH ×2 (13:00→16:00)
[2017-08-20 14:24] LABS: INTERNATIONAL NORMALIZED RATIO 1.8 RATIO; PROTHROMBIN TIME - PATIENT 17.8 SEC (9.8-11.6)
[2017-08-20] MEDS ORDERED: GLUCAGON 1 MG/ML VIAL OTHER PRN (14:30)
[2017-08-20] MEDS ORDERED: DEXTROSE 50% IN WATER 50 ML VIAL(D50) IV PUSH PRN (14:30)
[2017-08-20] MEDS: POTASSIUM CHLOR 20 MEQ PREMIX 100 ML IV SCH ×2 (16:58→19:15)
[2017-08-20] MEDS: INSULIN NovoLIN REGULAR SUPPLEMENTAL SCALE SQ SCH ×2 (17:00→21:00)
[2017-08-20] MEDS ORDERED: CALCIUM GLUCONATE INJ 1 GM in SODIUM CHLORIDE 0.9% INJ 100 ML IV ONE (17:00)
--- NOTE | 2017-08-20 18:26 | HHI.PR ---
Subjective Remarks Follow-up for septic shock, complicated UTI. Patient is currently doing well. Denies any chest pain, shortness of breath, fever or chills. Objective Vitals Vital Signs Date Time Temp Pulse Resp B/P (MAP) Pulse Ox O2 Delivery O2 Flow Rate FiO2 08/20/17 18:00 98 08/20/17 17:07 100 17 116/84 (95) 95 08/20/17 16:07 94 16 87/59 (68) 94 08/20/17 16:00 116 08/20/17 16:00 100 17 94 08/20/17 15:11 20 08/20/17 15:07 108 19 115/77 (90) 95 08/20/17 14:07 110 17 105/73 (84) 94 08/20/17 14:00 116 08/20/17 13:07 104 20 114/82 (93) 94 08/20/17 13:00 96 08/20/17 12:07 97.8 100 17 105/64 (78) 94 08/20/17 12:00 100 08/20/17 11:07 98 16 102/68 (79) 94 08/20/17 10:07 106 17 95/61 (72) 95 08/20/17 10:00 106 23 93 08/20/17 10:00 106 08/20/17 09:07 104 17 104/67 (79) 95 08/20/17 08:35 94 Nasal Cannula 2.00 08/20/17 08:07 97.6 102 17 93/62 (72) 93 08/20/17 08:00 100 08/20/17 07:00 93 Nasal Cannula 3.00 08/20/17 07:00 98 16 94 08/20/17 06:01 98 26 91/62 (72) 95 08/20/17 06:00 95 08/20/17 04:01 97.5 92 17 92/68 (76) 95 08/20/17 04:00 94 08/20/17 03:46 94 20 87/57 (67) 94 08/20/17 03:31 92 12 93/58 (70) 95 08/20/17 03:16 96 17 92/57 (69) 95 08/20/17 03:01 90 13 83/50 (61) 96 08/20/17 02:46 90 16 90/57 (68) 96 08/20/17 02:31 90 17 90/53 (65) 97 08/20/17 02:28 90 110/68 08/20/17 02:01 86 16 120/74 (89) 98 08/20/17 02:00 97 08/20/17 01:46 92 16 111/53 (72) 96 08/20/17 01:16 92 17 102/65 (77) 96 08/20/17 01:01 90 16 118/58 (78) 96 08/20/17 00:16 92 24 118/71 (87) 93 08/20/17 00:01 88.5 98 19 110/70 (83) 95 08/20/17 00:00 96 08/19/17 23:46 92 18 117/68 (84) 95 08/19/17 23:31 96 17 104/56 (72) 94 08/19/17 23:16 94 15 101/58 (72) 95 08/19/17 23:01 90 16 107/59 (75) 95 08/19/17 22:46 96 17 93/57 (69) 96 08/19/17 22:16 92 22 116/57 (76) 94 08/19/17 22:01 98 21 100/75 (83) 95 08/19/17 22:00 100 08/19/17 21:46 106 27 93/64 (74) 85 08/19/17 21:32 102 20 189/90 (123) 94 08/19/17 21:31 100 21 170/113 (132) 95 08/19/17 21:16 92 15 123/68 (86) 95 08/19/17 21:01 102 21 74/51 (59) 93 08/19/17 20:50 97 71/52 08/19/17 20:48 106 22 76/52 (60) 94 08/19/17 20:42 93 Nasal Cannula 2.00 08/19/17 20:31 104 22 71/47 (55) 94 08/19/17 20:16 106 22 59/39 (46) 93 08/19/17 20:01 98.3 104 23 58/42 (47) 93 08/19/17 20:00 92 08/19/17 19:16 106 24 81/60 (67) 92 08/19/17 19:01 112 21 80/57 (65) 94 08/19/17 19:00 94 Nasal Cannula 3.00 08/19/17 18:46 112 25 79/47 (58) 94 08/19/17 18:42 112 28 74/57 (63) 93 08/19/17 18:37 108 23 73/47 (56) 92 08/19/17 18:35 108 25 66/52 (57) 93 08/19/17 18:31 110 26 79/50 (60) 93 I/O 08/19/17 08/19/17 08/19/17 08/20/17 08/20/17 08/20/17 07:00 15:00 23:00 07:00 15:00 23:00 Intake Total 3450 ml 2580 ml 2591.6 ml 600 ml Output Total 350 ml 500 ml 700 ml Balance 3450 ml 2230 ml 2091.6 ml -100 ml Intake Oral 180 ml 120 ml 600 ml IV Total 3450 ml 2400 ml 2471.6 ml Output Urine Total 350 ml 500 ml 700 ml # Bowel Movements 0 0 Result Diagram: 08/20/17 0455 08/20/17 0455 Imaging Last Impressions Chest X-Ray 08/19/17 0711 Signed Impressions: Service Date/Time: Saturday, August 19, 2017 07:15 - CONCLUSION: 1. No acute cardiopulmonary disease. William Nielson MD Abdomen/Pelvis CT 08/19/17 0000 Signed Impressions: Service Date/Time: Saturday, August 19, 2017 10:06 - CONCLUSION: Right kidney is enlarged with marked perinephric stranding may be related to recent obstruction. I do not see any active stone either in the collecting system of the right ureter. There is a Hendricks catheter in the bladder also without evidence of stone. No other stones are noted. 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 There may be a small splenic arterial aneurysm as well also benign and does not need workup. Ronni Dove MD Objective Remarks GENERAL: Alert, oriented 3, NAD. SKIN: Warm and dry. HEAD: Normocephalic. EYES: No scleral icterus. No injection or drainage. NECK: Supple, trachea midline. No JVD or lymphadenopathy. CARDIOVASCULAR: Regular rate and rhythm without murmurs, gallops, or rubs. RESPIRATORY: Breath sounds equal bilaterally. No accessory muscle use. GASTROINTESTINAL: Abdomen soft, non-tender, nondistended. MUSCULOSKELETAL: No cyanosis, or edema. BACK: Nontender without obvious deformity. No CVA tenderness. Procedures None A/P Problem List: (1) Septic shock ICD Code: A41.9 - Sepsis, unspecified organism; R65.21 - Severe sepsis with septic shock (2) UTI (urinary tract infection) ICD Code: N39.0 - Urinary tract infection, site not specified Status: Acute (3) Atrial fibrillation with RVR ICD Code: I48.91 - Unspecified atrial fibrillation Status: Acute Assessment and Plan Ms. Jeffries is a pleasant 87-year-old female with a history of atrial fibrillation who presented to the emergency department on 08/19/2017 due to generalized weakness. She reported stomach upset, dry heaves, low-grade fever and chills. 4 weeks prior to this admission patient experienced flulike symptoms. - Septic shock - due to complicated UTI. - Septic shock resolved with transient Levophed use and fluid resuscitation along with abx. - Continue IV normal saline at 100 cc per hour. - Complicated UTI - Patient has received antibiotics in June 2017. Due to septic shock, we will start patient on broad spectrum abx. - Urine culture is growing gram-negative rods. Blood culture is growing Escherichia coli. Further identification pending. - Appreciate ID recommendations. We can likely transition to ceftriaxone if we have the sensitivity. - We'll discontinue Vancomycin but continue Meropenem until sensitivity is back. - Acute kidney injury, mild - Severe Hypokalemia with potassium 2.5 - Hypomagnesemia - Hypocalcemia - Creatinine 1.20 --> 1.10. - Potassium improved to 3.3. - We'll replaced potassium and magnesium with IV formulations. - We'll replace calcium with IV calcium gluconate - Atrial fibrillation - Currently in the range of low 100s. With hypotension, it would be reasonable to hold off using any rate control medications for now. - We'll introduce low-dose metoprolol if her blood pressure remains within reasonable range above 100 systolic. - Patient takes warfarin, INR and 0.8 today. We'll resume warfarin today Full code. Resume warfarin today Problem Qualifiers (1) UTI (urinary tract infection): Qualified Codes: N39.0 - Urinary tract infection, site not specified Nicole Gill DO Aug 20, 2017 6:26 pm
[2017-08-21] VITALS (41 sets, daily range): BP systolic 104–171; BP diastolic 67–110; PULSE 82–121; RESP 9–26; TEMP 97.5–98.4; O2SAT 91–98
[2017-08-21] MEDS: ACETAMINOPHEN 325 MG TAB PO PRN ×2 (01:05→17:56)
[2017-08-21] MEDS: SODIUM CHLOR 0.9% 1000 ML INJ 1,000 ML IV SCH (01:06)
[2017-08-21] MEDS: CHLORHEXIDINE GLUCONATE 2 % 1 PACK (2 CLOTHS)(taper/protocol) TOPICAL SCH (04:00)
[2017-08-21] MEDS: MEROPENEM INJ 1,000 MG in SODIUM CHLORIDE 0.9% INJ 100 ML IV SCH (04:00)
[2017-08-21] MEDS: INSULIN NovoLIN REGULAR SUPPLEMENTAL SCALE SQ SCH ×4 (08:00→21:00)
[2017-08-21] MEDS: SODIUM CHLORIDE 0.9% FLUSH 10 ML FLUSH IV FLUSH SCH ×2 (08:02→21:08)
[2017-08-21 08:34] LABS: AUTOMATED NEUTROPHIL # 9.5 TH/MM3 (1.8-7.7); BASOPHIL # 0.1 TH/MM3 (0-0.2); BASOPHIL % 0.7 % (0.0-2.0); EOSINOPHIL # 0.2 TH/MM3 (0-0.4); EOSINOPHIL % 1.6 % (0.0-4.0); HEMATOCRIT 39.4 % (35.0-46.0); LYMPH % 5.6 % (9.0-44.0); LYMPHOCYTE # 0.6 TH/MM3 (1.0-4.8); MEAN CELL VOLUME 83.6 FL (80.0-100.0); MEAN CORPUSCULAR HEMOGLOBIN 25.9 PG (27.0-34.0); MONO % 3.7 % (0.0-8.0); NEUT % 88.4 % (16.0-70.0); PLATELET COUNT 111 TH/MM3 (150-450); RED BLOOD COUNT 4.71 MIL/MM3 (4.00-5.30); RED CELL DISTRIBUTION WIDTH 15.4 % (11.6-17.2); WHITE BLOOD COUNT 10.8 TH/MM3 (4.0-11.0)
[2017-08-21 08:44] LABS: HEMO FLAGS AUTO DIFF
[2017-08-21 08:49] LABS: INTERNATIONAL NORMALIZED RATIO 1.8 RATIO; PROTHROMBIN TIME - PATIENT 18.1 SEC (9.8-11.6)
[2017-08-21 08:50] LABS: POTASSIUM 3.5 MEQ/L (3.5-5.1)
[2017-08-21 09:03] LABS: BANDS 13 % (0-6); NEUTROPHIL # MANUAL DIFF 9.9 TH/MM3 (1.8-7.7); POLYS (SEG NEUTROPHILS) 79 % (16-70); WBC DIFF SAMPLE 100
[2017-08-21 09:04] LABS: PLATELET ESTIMATE SMEAR LOW (NORMAL); PLATELET MORPHOLOGY NORMAL (NORMAL); SCAN/DIFF FINAL DIFF MANUAL
[2017-08-21 09:05] LABS: BICARBONATE 21.4 MEQ/L (21.0-32.0)
[2017-08-21 09:49] LABS: CALCIUM-PROTEIN CORRECTED 7.5 MG/DL (8.5-10.1)
[2017-08-21] MEDS ORDERED: METOPROLOL TARTRATE 25 MG TAB PO ONE (10:45)
[2017-08-21] MEDS ORDERED: TIMO0.5S30 EACH EYE (11:13)
[2017-08-21] MEDS ORDERED: LATA0.002 EACH EYE (11:13)
[2017-08-21] MEDS: ONDANSETRON HCL 4 MG/2 ML VIAL IVP PRN (11:19)
[2017-08-21] MEDS: PANTOPRAZOLE SOD 40 MG DELAYED RELEASE TAB PO SCH (13:48)
--- NOTE | 2017-08-21 14:07 | HHI.PR ---
Subjective Remarks Follow-up for septic shock, complicated UTI, Afib. Patient is doing well. She is sitting in her chair. No fever, chills. Her heart rate is in the 115 to 120s range. Objective Vitals Vital Signs Date Time Temp Pulse Resp B/P (MAP) Pulse Ox O2 Delivery O2 Flow Rate FiO2 08/21/17 13:49 108 20 141/92 (108) 96 08/21/17 13:07 102 18 136/85 (102) 95 08/21/17 12:33 116 18 150/95 (113) 96 08/21/17 12:33 116 18 150/95 (113) 96 08/21/17 12:30 112 18 96 08/21/17 12:27 118 19 159/102 (121) 98 08/21/17 12:27 118 19 159/102 (121) 98 08/21/17 12:15 116 18 97 08/21/17 12:00 117 08/21/17 12:00 120 19 96 08/21/17 11:07 97.9 114 18 142/90 (107) 96 08/21/17 10:07 106 17 131/88 (102) 95 08/21/17 10:00 115 08/21/17 09:31 114 15 123/77 (92) 94 08/21/17 09:07 114 22 152/84 (106) 92 08/21/17 08:07 108 18 138/98 (111) 97 08/21/17 08:00 102 08/21/17 08:00 97 Nasal Cannula 3.00 08/21/17 07:57 110 19 140/91 (107) 96 08/21/17 07:07 108 20 147/102 (117) 98 08/21/17 07:00 106 9 98 08/21/17 07:00 97.5 08/21/17 06:00 121 08/21/17 06:00 96 15 148/74 (98) 95 08/21/17 05:07 102 15 134/76 (95) 96 08/21/17 04:07 98.0 100 18 108/72 (84) 95 08/21/17 04:00 111 08/21/17 03:07 94 16 104/76 (85) 95 08/21/17 02:07 100 15 119/72 (88) 96 08/21/17 02:05 18 08/21/17 02:00 96 08/21/17 01:07 108 20 139/85 (103) 97 08/21/17 00:07 97.8 106 20 150/101 (117) 97 08/21/17 00:00 114 08/20/17 23:07 108 18 169/94 (119) 96 08/20/17 22:08 110 20 136/90 (105) 93 08/20/17 22:00 113 08/20/17 21:07 102 20 136/84 (101) 94 08/20/17 20:07 98.8 110 20 115/78 (90) 96 08/20/17 20:00 96 Nasal Cannula 1.00 08/20/17 20:00 70 08/20/17 19:07 106 19 117/76 (90) 96 08/20/17 19:00 93 Nasal Cannula 2.00 08/20/17 18:07 98 20 128/90 (103) 94 08/20/17 18:00 98 18 95 08/20/17 18:00 98 08/20/17 17:07 100 17 116/84 (95) 95 08/20/17 16:07 94 16 87/59 (68) 94 08/20/17 16:00 116 08/20/17 16:00 100 17 94 08/20/17 15:07 108 19 115/77 (90) 95 08/20/17 14:07 110 17 105/73 (84) 94 I/O 08/20/17 08/20/17 08/20/17 08/21/17 08/21/17 08/21/17 07:00 15:00 23:00 07:00 15:00 23:00 Intake Total 2591.6 ml 1790 ml 2569 ml Output Total 500 ml 700 ml 1500 ml Balance 2091.6 ml 1090 ml 1069 ml Intake Oral 120 ml 600 ml 240 ml IV Total 2471.6 ml 1190 ml 2329 ml Output Urine Total 500 ml 700 ml 1500 ml # Bowel Movements 0 0 Result Diagram: 08/21/1782608/21/17826 Imaging Last Impressions Chest X-Ray 08/19/17 0711 Signed Impressions: Service Date/Time: Saturday, August 19, 2017 07:15 - CONCLUSION: 1. No acute cardiopulmonary disease. William Nielson MD Abdomen/Pelvis CT 08/19/17 0000 Signed Impressions: Service Date/Time: Saturday, August 19, 2017 10:06 - CONCLUSION: Right kidney is enlarged with marked perinephric stranding may be related to recent obstruction. I do not see any active stone either in the collecting system of the right ureter. There is a Hendricks catheter in the bladder also without evidence of stone. No other stones are noted. 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 There may be a small splenic arterial aneurysm as well also benign and does not need workup. Ronni Dove MD Objective Remarks GENERAL: Alert, oriented 3, NAD. SKIN: Warm and dry. HEAD: Normocephalic. EYES: No scleral icterus. No injection or drainage. NECK: Supple, trachea midline. No JVD or lymphadenopathy. CARDIOVASCULAR: Regular rate and rhythm without murmurs, gallops, or rubs. RESPIRATORY: Breath sounds equal bilaterally. No accessory muscle use. GASTROINTESTINAL: Abdomen soft, non-tender, nondistended. MUSCULOSKELETAL: No cyanosis, or edema. BACK: Nontender without obvious deformity. No CVA tenderness. Procedures None A/P Problem List: (1) Septic shock ICD Code: A41.9 - Sepsis, unspecified organism; R65.21 - Severe sepsis with septic shock (2) UTI (urinary tract infection) ICD Code: N39.0 - Urinary tract infection, site not specified Status: Acute (3) Atrial fibrillation with RVR ICD Code: I48.91 - Unspecified atrial fibrillation Status: Acute Assessment and Plan Ms. Jeffries is a pleasant 87-year-old female with a history of atrial fibrillation who presented to the emergency department on 08/19/2017 due to generalized weakness. She reported stomach upset, dry heaves, low-grade fever and chills. 4 weeks prior to this admission patient experienced flulike symptoms. - Septic shock - due to complicated UTI. - Septic shock resolved with transient Levophed use and fluid resuscitation along with abx. - Patient is currently hemodynamically stable. - Discontinue IV normal saline at 100 cc per hour. - Complicated UTI - Patient has received antibiotics in June 2017. Due to septic shock, we will start patient on broad spectrum abx. - Urine culture is growing gram-negative rods. Blood culture is growing Escherichia coli - sensitive to Cipro. - Will switch to IV cipro 400mg BID and plan on discharging patient on PO Cipro. - Acute kidney injury, mild - Severe Hypokalemia with potassium 2.5 - Hypomagnesemia - Hypocalcemia - Creatinine 1.20 --> 1.10 --> 0.89 - Potassium improved to 3.3 --> 3.5 - replaced potassium and magnesium with IV formulations. - Will give another 1 g of Calcium gluconate. Start Oral Calcium as well. - Atrial fibrillation - Will re-start metoprolol 25mg BID. - continue Warfarin. INR 1.8 today. Full code. Warfarin. Possible discharge to SNF tomorrow. Problem Qualifiers (1) UTI (urinary tract infection): Qualified Codes: N39.0 - Urinary tract infection, site not specified Nicole Gill DO Aug 21, 2017 2:07 pm
[2017-08-21] MEDS: CIPROFLOXACIN 400 MG PREMIX 200 ML IV SCH (15:14)
[2017-08-21] MEDS: WARFARIN SOD 4 MG TAB PO SCH (15:14)
[2017-08-21] MEDS ORDERED: CALCIUM GLUCONATE INJ 1 GM in DEXTROSE 5% IN WATER 100ML INJ 100 ML IV ONE ×2 (16:00)
[2017-08-21] MEDS: METOPROLOL TARTRATE 25 MG TAB PO SCH (21:07)
[2017-08-21] MEDS: CALCIUM CARBONATE 1.25 GM (CA 500 MG) TAB PO SCH (21:07)
[2017-08-22] VITALS (24 sets, daily range): BP systolic 127–168; BP diastolic 75–108; PULSE 71–110; RESP 16–24; TEMP 96.6–98.5; O2SAT 92–97
[2017-08-22] MEDS: CIPROFLOXACIN 400 MG PREMIX 200 ML IV SCH (04:00)
[2017-08-22] MEDS: CHLORHEXIDINE GLUCONATE 2 % 1 PACK (2 CLOTHS)(taper/protocol) TOPICAL SCH (04:00)
[2017-08-22] MEDS ORDERED: PHARMACY ORDERED LAB ONE (05:45)
[2017-08-22] MEDS: INSULIN NovoLIN REGULAR SUPPLEMENTAL SCALE SQ SCH ×4 (08:00→20:00)
[2017-08-22] MEDS: CALCIUM CARBONATE 1.25 GM (CA 500 MG) TAB PO SCH ×2 (08:25→20:00)
[2017-08-22] MEDS: PANTOPRAZOLE SOD 40 MG DELAYED RELEASE TAB PO SCH (08:25)
[2017-08-22] MEDS: LATANOPROST 0.005% OPHT SOLN 2.5 ML BTL EACH EYE SCH (08:25)
[2017-08-22] MEDS: METOPROLOL TARTRATE 25 MG TAB PO SCH (08:25)
[2017-08-22 08:51] LABS: INTERNATIONAL NORMALIZED RATIO 2.4 RATIO; PROTHROMBIN TIME - PATIENT 23.8 SEC (9.8-11.6)
[2017-08-22] MEDS ORDERED: METOPROLOL TARTRATE 25 MG TAB PO ONE (09:00)
[2017-08-22] MEDS: SODIUM CHLORIDE 0.9% FLUSH 10 ML FLUSH IV FLUSH SCH ×2 (09:00→19:59)
[2017-08-22] MEDS: LACTOBACILLUS ACIDOPHILUS TAB PO SCH ×3 (09:00→17:38)
--- NOTE | 2017-08-22 09:00 | HHI.PR ---
Subjective Remarks Follow-up for septic shock, complicated UTI, Afib. Patient is doing well. However, after cipro she had itchiness around the IV site. No fever, chills. Objective Vitals Vital Signs Date Time Temp Pulse Resp B/P (MAP) Pulse Ox O2 Delivery O2 Flow Rate FiO2 08/22/17 06:01 92 17 149/76 (100) 92 08/22/17 06:00 88 08/22/17 05:01 97.8 94 18 152/89 (110) 96 08/22/17 05:01 94 18 152/89 (110) 96 08/22/17 05:00 92 18 95 08/22/17 04:01 94 20 154/93 (113) 95 08/22/17 04:00 90 08/22/17 04:00 83 08/22/17 03:01 90 16 138/77 (97) 92 08/22/17 03:01 90 16 138/77 (97) 92 08/22/17 02:01 92 17 140/75 (96) 92 08/22/17 02:00 87 08/22/17 01:01 98.0 92 19 127/82 (97) 95 08/22/17 00:01 94 17 136/80 (98) 92 08/22/17 00:00 71 08/21/17 23:01 96 21 138/90 (106) 93 08/21/17 22:00 85 08/21/17 22:00 82 25 106/80 (89) 93 08/21/17 21:08 16 08/21/17 21:01 96 25 106/80 (89) 93 08/21/17 20:30 93 21 08/21/17 20:01 98.4 88 17 107/67 (80) 91 08/21/17 20:00 91 08/21/17 19:20 102 19 119/77 (91) 92 08/21/17 19:00 93 Nasal Cannula 3.00 08/21/17 18:00 108 22 148/79 (102) 92 08/21/17 18:00 110 08/21/17 17:09 104 26 171/86 (114) 93 08/21/17 16:10 102 20 149/93 (111) 93 08/21/17 16:08 103 08/21/17 16:00 97.9 100 22 154/110 (125) 94 08/21/17 15:15 100 121/81 (94) 95 08/21/17 14:00 102 08/21/17 13:49 108 20 141/92 (108) 96 08/21/17 13:07 102 18 136/85 (102) 95 08/21/17 12:33 116 18 150/95 (113) 96 08/21/17 12:33 116 18 150/95 (113) 96 08/21/17 12:30 112 18 96 08/21/17 12:27 118 19 159/102 (121) 98 08/21/17 12:27 118 19 159/102 (121) 98 08/21/17 12:15 116 18 97 08/21/17 12:00 117 08/21/17 12:00 120 19 96 08/21/17 11:07 97.9 114 18 142/90 (107) 96 08/21/17 10:07 106 17 131/88 (102) 95 08/21/17 10:00 115 08/21/17 09:31 114 15 123/77 (92) 94 08/21/17 09:07 114 22 152/84 (106) 92 I/O 08/21/17 08/21/17 08/21/17 08/22/17 08/22/17 08/22/17 07:00 15:00 23:00 07:00 15:00 23:00 Intake Total 2569 ml 310 ml 50 ml Output Total 1500 ml 300 ml 1650 ml Balance 1069 ml 10 ml -1600 ml Intake Oral 240 ml IV Total 2329 ml 310 ml 50 ml Output Urine Total 1500 ml 300 ml 1650 ml # Bowel Movements 0 Result Diagram: 08/21/17 0827 08/21/17 0827 Imaging Last Impressions Chest X-Ray 08/19/17 0711 Signed Impressions: Service Date/Time: Saturday, August 19, 2017 07:15 - CONCLUSION: 1. No acute cardiopulmonary disease. William Nielson MD Abdomen/Pelvis CT 08/19/17 0000 Signed Impressions: Service Date/Time: Saturday, August 19, 2017 10:06 - CONCLUSION: Right kidney is enlarged with marked perinephric stranding may be related to recent obstruction. I do not see any active stone either in the collecting system of the right ureter. There is a Hendricks catheter in the bladder also without evidence of stone. No other stones are noted. 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 There may be a small splenic arterial aneurysm as well also benign and does not need workup. Ronni Dove MD Objective Remarks GENERAL: Alert, oriented 3, NAD. SKIN: Warm and dry. HEAD: Normocephalic. EYES: No scleral icterus. No injection or drainage. NECK: Supple, trachea midline. No JVD or lymphadenopathy. CARDIOVASCULAR: Regular rate and rhythm without murmurs, gallops, or rubs. RESPIRATORY: Breath sounds equal bilaterally. No accessory muscle use. GASTROINTESTINAL: Abdomen soft, non-tender, nondistended. MUSCULOSKELETAL: No cyanosis, or edema. BACK: Nontender without obvious deformity. No CVA tenderness. Procedures None A/P Problem List: (1) Septic shock ICD Code: A41.9 - Sepsis, unspecified organism; R65.21 - Severe sepsis with septic shock (2) UTI (urinary tract infection) ICD Code: N39.0 - Urinary tract infection, site not specified Status: Acute (3) Atrial fibrillation with RVR ICD Code: I48.91 - Unspecified atrial fibrillation Status: Acute Assessment and Plan Ms. Jeffries is a pleasant 87-year-old female with a history of atrial fibrillation who presented to the emergency department on 08/19/2017 due to generalized weakness. She reported stomach upset, dry heaves, low-grade fever and chills. 4 weeks prior to this admission patient experienced flulike symptoms. - Septic shock - due to complicated UTI. - Septic shock resolved with transient Levophed use and fluid resuscitation along with abx. - Patient is currently hemodynamically stable. IV Fluid discontinued. - WBC decreased from 16.8 --> 10.8. Lactic acid 3.0 ==> 1.3. - Complicated UTI - Patient has received antibiotics in June 2017. Due to septic shock, we will start patient on broad spectrum abx. - Urine culture is growing gram-negative rods. Blood culture is growing Escherichia coli - sensitive to Cipro. - Stop Cipro IV and start Levaquin 500mg Qday PO. - Acute kidney injury, mild - Severe Hypokalemia with potassium 2.5 - Hypomagnesemia - Hypocalcemia - Creatinine 1.20 --> 1.10 --> 0.89 - Potassium improved to 2.5 --> 3.3 --> 3.5 - replaced potassium and magnesium with IV formulations. - Received 1 g of Calcium gluconate. Started Oral Calcium as well. - Atrial fibrillation - Continue metoprolol 50mg BID. Start Cardizem 30mg QID PO. - continue Warfarin. INR 1.8 today. Full code. Warfarin. Problem Qualifiers (1) UTI (urinary tract infection): Qualified Codes: N39.0 - Urinary tract infection, site not specified Nicole Gill DO Aug 22, 2017 9:00 am
[2017-08-22] MEDS: LEVOFLOXACIN 500 MG TAB PO SCH (11:29)
[2017-08-22] MEDS ORDERED: CARD120C4 PO (12:26)
[2017-08-22] MEDS ORDERED: METO-309 PO (12:26)
[2017-08-22] MEDS ORDERED: CALC500 PO (12:28)
[2017-08-22] MEDS ORDERED: LACT PO (12:29)
--- NOTE | 2017-08-22 12:30 | HHI.DS ---
Discharge Summary Admission Date Aug 19, 2017 at 9:20 am Discharge Date: Aug 22, 2017 Admitting Diagnosis sepsis, hypokalemia (1) Septic shock ICD Code: A41.9 - Sepsis, unspecified organism; R65.21 - Severe sepsis with septic shock Diagnosis: Principal (2) UTI (urinary tract infection) ICD Code: N39.0 - Urinary tract infection, site not specified Diagnosis: Principal Status: Acute (3) Atrial fibrillation with RVR ICD Code: I48.91 - Unspecified atrial fibrillation Status: Acute Procedures None Brief History - From Admission Ms. Jeffries is a pleasant 87-year-old female with a history of atrial fibrillation who presented to the emergency department on 12/18/2016 due to generalized weakness, body aches and mild fever as well as chills. Approximately 4 weeks prior to this admission patient experienced flulike symptoms. Her daughter had flu. On 08/16/2017 patient felt very tired and weak. She also had stomach upset and dry heaves. In the last few days she has been experiencing low-grade fever and chills. She also reports some cough as well. She also reports some discomfort on the right side of her back. She reported hematuria in June. She does report increased urinary frequency but no dysuria or hematuria. ED workup indicated possible UTI. On arrival patient's blood pressure 135/66, heart rate 123, temperature 101.6, respiration 20, pulse oximetry 93% to 95% on 2 L of oxygen. WBC 16.8 with neutrophils 91.5%. Sodium 136, potassium 2.5, creatinine 1.20, lactic acid 2.4 later increased to 3.0. Urinalysis was indicative of UTI. CT abdomen pelvis indicated right-sided perinephric stranding. Agent was subsequently admitted to ICU. Patient received fluid boluses in the ED, aztreonam, Flagyl, vancomycin and gentamicin in the ED. CBC/BMP: 08/21/17 0827 08/21/17 0827 Significant Findings Laboratory Tests Test 08/19/17 12:50 08/19/17 20:45 08/20/17 01:14 08/20/17 04:55 Lactic Acid Level 3.0 mmol/L (0.4-2.0) 2.7 mmol/L (0.4-2.0) White Blood Count 15.3 TH/MM3 (4.0-11.0) Mean Corpuscular Hemoglobin 26.8 PG (27.0-34.0) Mean Corpuscular Hemoglobin Concent 31.9 % (32.0-36.0) Platelet Count 82 TH/MM3 (150-450) Neutrophils (%) (Auto) 89.4 % (16.0-70.0) Lymphocytes (%) (Auto) 4.7 % (9.0-44.0) Neutrophils # (Auto) 13.6 TH/MM3 (1.8-7.7) Lymphocytes # (Auto) 0.7 TH/MM3 (1.0-4.8) Platelet Estimate LOW (NORMAL) Creatinine 1.10 MG/DL (0.50-1.00) Random Glucose 111 MG/DL (74-106) Total Protein 5.7 GM/DL (6.4-8.2) Calcium Level 6.8 MG/DL (8.5-10.1) Potassium Level 3.3 MEQ/L (3.5-5.1) Chloride Level 111 MEQ/L (98-107) Carbon Dioxide Level 17.4 MEQ/L (21.0-32.0) Estimat Glomerular Filtration Rate 47 ML/MIN (>89) Protein Corrected Calcium 7.5 MG/DL (8.5-10.1) Test 08/20/17 14:00 08/21/17 08:27 08/22/17 08:30 Prothrombin Time 17.8 SEC (9.8-11.6) 18.1 SEC (9.8-11.6) 23.8 SEC (9.8-11.6) Mean Corpuscular Hemoglobin 25.9 PG (27.0-34.0) Mean Corpuscular Hemoglobin Concent 31.0 % (32.0-36.0) Platelet Count 111 TH/MM3 (150-450) Neutrophils (%) (Auto) 88.4 % (16.0-70.0) Lymphocytes (%) (Auto) 5.6 % (9.0-44.0) Neutrophils # (Auto) 9.5 TH/MM3 (1.8-7.7) Lymphocytes # (Auto) 0.6 TH/MM3 (1.0-4.8) Neutrophils % (Manual) 79 % (16-70) Band Neutrophils % 13 % (0-6) Lymphocytes % 3 % (9-44) Neutrophils # (Manual) 9.9 TH/MM3 (1.8-7.7) Platelet Estimate LOW (NORMAL) Calcium Level 7.1 MG/DL (8.5-10.1) Chloride Level 110 MEQ/L (98-107) Estimat Glomerular Filtration Rate 60 ML/MIN (>89) Protein Corrected Calcium 7.5 MG/DL (8.5-10.1) Imaging Last Impressions Chest X-Ray 08/19/17 0711 Signed Impressions: Service Date/Time: Saturday, August 19, 2017 07:15 - CONCLUSION: 1. No acute cardiopulmonary disease. William Nielson MD Abdomen/Pelvis CT 08/19/17 0000 Signed Impressions: Service Date/Time: Saturday, August 19, 2017 10:06 - CONCLUSION: Right kidney is enlarged with marked perinephric stranding may be related to recent obstruction. I do not see any active stone either in the collecting system of the right ureter. There is a Hendricks catheter in the bladder also without evidence of stone. No other stones are noted. 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 There may be a small splenic arterial aneurysm as well also benign and does not need workup. Ronni Dove MD PE at Discharge GENERAL: Alert, oriented 3, NAD. SKIN: Warm and dry. HEAD: Normocephalic. EYES: No scleral icterus. No injection or drainage. NECK: Supple, trachea midline. No JVD or lymphadenopathy. CARDIOVASCULAR: Regular rate and rhythm without murmurs, gallops, or rubs. RESPIRATORY: Breath sounds equal bilaterally. No accessory muscle use. GASTROINTESTINAL: Abdomen soft, non-tender, nondistended. MUSCULOSKELETAL: No cyanosis, or edema. BACK: Nontender without obvious deformity. No CVA tenderness. Pt update on day of discharge Patient is doing well. No acute concerns. No fever, chills. Doing well with physical therapy. Hospital Course Ms. Jeffries is a pleasant 87-year-old female with a history of atrial fibrillation who presented to the emergency department on 08/19/2017 due to generalized weakness. She reported stomach upset, dry heaves, low-grade fever and chills. 4 weeks prior to this admission patient experienced flulike symptoms. - Septic shock - due to complicated UTI. - Septic shock resolved with transient Levophed use and fluid resuscitation along with abx. - Patient is currently hemodynamically stable. IV Fluid discontinued. - WBC decreased from 16.8 --> 10.8. Lactic acid 3.0 ==> 1.3. - Complicated UTI - Patient has received antibiotics in June 2017. Due to septic shock, we will start patient on broad spectrum abx. - Urine culture is growing gram-negative rods. Blood culture is growing Escherichia coli - sensitive to Cipro. - Stop Cipro IV and start Levaquin 500mg Qday PO. STOP Date after last dose on 09/02/2017. - Acute kidney injury, mild - Severe Hypokalemia with potassium 2.5 - Hypomagnesemia - Hypocalcemia - Creatinine 1.20 --> 1.10 --> 0.89 - Potassium improved to 2.5 --> 3.3 --> 3.5 - replaced potassium and magnesium with IV formulations. - Received 1 g of Calcium gluconate. Started Oral Calcium as well. - Atrial fibrillation - Continue metoprolol 50mg BID. Start Cardizem 30mg QID PO. - continue Warfarin. INR 1.8 today. Full code. Warfarin. Pt Condition on Discharge: Good Discharge Disposition: Discharge to SNF Discharge Time: > 30 minutes Discharge Instructions DIET: Follow Instructions for: As Tolerated, No Restrictions Activities you can perform: Regular-No Restrictions Follow up Referrals: SNF/[facility]/ New Medications: Diltiazem CD 24 HR (Cardizem CD 24 HR) 120 Mg Caper 120 MG PO DAILY for Afib, #30 CAP 0 Refills Lactobacillus Acidophilus (Acidophilus/l-Sporogenes) 35 Million Cell-25 Million Cell Tab 1 TAB PO TID for Infection, #90 TAB Levofloxacin (Levaquin) 500 Mg Tablet 500 MG PO DAILY for Infection, #12 TAB STOP after the last dose on 09/02/2017. Metoprolol Tartrate (Lopressor) 50 Mg Tab 50 MG PO Q12HR for Heart, #60 TAB Oyster Shell (Oyster Calcium) 500 Mg Calcium (1250 Mg) Tab 500 MG PO Q12HR for calcium, #60 TAB Continued Medications: Celecoxib (Celecoxib) 50 Mg Cap 50 MG PO DAILY for Pain Management, CAP 0 Refills Cholecalciferol (Vitamin D3) 2,000 Unit Cap 2000 UNITS PO DAILY for Nutritional Supplement, #1 BOTTLE 0 Refills Latanoprost Opth Drops (Latanoprost Opth Drops) 0.005% Drops 1 DROP EACH EYE DAILY for Glaucoma, #2.5 ML 0 Refills Refrigerate until opened. Pantoprazole (Pantoprazole) 40 Mg Tab 40 MG PO DAILY for Reflux, #30 TAB 0 Refills Timolol Opth Drops (Timolol Opth Drops) 0.5 % Soln 1 DROP EACH EYE DAILY for Glaucoma, #1 BOTTLE 0 Refills Warfarin (Warfarin) 2 Mg Tab 4 MG PO DAILY for Blood Clot Prevention, #30 TAB 0 Refills Discontinued Medications: Hydrochlorothiazide (Hydrochlorothiazide) 12.5 Mg Cap 12.5 MG PO DAILY, #30 CAP 0 Refills Metoprolol Tartrate (Metoprolol Tartrate) 25 Mg Tab 12.5 MG PO BID, #60 TAB 0 Refills Nicole Gill DO Aug 22, 2017 12:30 pm
[2017-08-22] MEDS: DILTIAZEM HCL 30 MG TAB PO SCH ×3 (13:22→20:00)
[2017-08-22] MEDS ORDERED: LEVA500T33 PO (14:17)
[2017-08-22] MEDS: WARFARIN SOD 4 MG TAB PO SCH (16:00)
[2017-08-22] MEDS: METOPROLOL TARTRATE 50 MG TAB PO SCH (20:00)
[2017-08-23] VITALS: BP 130/72; PULSE 78; RESP 18; TEMP 96.8; O2SAT 96
[2017-08-23] MEDS: CHLORHEXIDINE GLUCONATE 2 % 1 PACK (2 CLOTHS)(taper/protocol) TOPICAL SCH (03:23)
[2017-08-23] MEDS: INSULIN NovoLIN REGULAR SUPPLEMENTAL SCALE SQ SCH ×2 (07:48→11:53)
[2017-08-23 08:00] VITALS: BP 165/89; PULSE 90; RESP 16; TEMP 96.7; O2SAT 96
[2017-08-23 08:30] VITALS: O2SAT 97
[2017-08-23] MEDS: METOPROLOL TARTRATE 50 MG TAB PO SCH (08:56)
[2017-08-23] MEDS: PANTOPRAZOLE SOD 40 MG DELAYED RELEASE TAB PO SCH (08:56)
[2017-08-23] MEDS: LACTOBACILLUS ACIDOPHILUS TAB PO SCH ×2 (08:56→13:00)
[2017-08-23] MEDS: SODIUM CHLORIDE 0.9% FLUSH 10 ML FLUSH IV FLUSH SCH (08:56)
[2017-08-23] MEDS: CALCIUM CARBONATE 1.25 GM (CA 500 MG) TAB PO SCH (08:56)
[2017-08-23] MEDS: DILTIAZEM HCL 30 MG TAB PO SCH ×2 (08:56→13:01)
[2017-08-23] MEDS: LEVOFLOXACIN 500 MG TAB PO SCH (11:58)
[2017-08-23 12:00] VITALS: BP 153/76; PULSE 75; RESP 18; TEMP 96.2; O2SAT 98
--- NOTE | 2017-08-23 12:06 | HHI.PR ---
Subjective Remarks Follow-up for UTI, sepsis, atrial fibrillation. Patient is currently doing well waiting to go to rehabilitation today. No acute concerns. Objective Vitals Vital Signs Date Time Temp Pulse Resp B/P (MAP) Pulse Ox O2 Delivery O2 Flow Rate FiO2 08/23/17 08:30 97 21 08/23/17 08:00 96.7 90 16 165/89 (114) 96 08/23/17 00:00 96.8 78 18 130/72 (91) 96 08/22/17 21:13 93 21 08/22/17 20:00 96.6 107 20 161/92 (115) 97 08/22/17 16:00 92 08/22/17 16:00 98.3 92 20 145/77 (99) 93 08/22/17 15:00 100 20 163/101 (121) 96 08/22/17 14:00 108 08/22/17 14:00 108 20 168/104 (125) 96 08/22/17 13:00 100 08/22/17 13:00 100 19 140/90 (107) 94 I/O 08/22/17 08/22/17 08/22/17 08/23/17 08/23/17 08/23/17 07:00 15:00 23:00 07:00 15:00 23:00 Intake Total 50 ml 1440 ml 860 ml Output Total 1650 ml 1875 ml 1000 ml Balance -1600 ml -435 ml -140 ml Intake Oral 1440 ml 860 ml IV Total 50 ml Output Urine Total 1650 ml 1875 ml 1000 ml # Voids 2 # Bowel Movements 1 0 1 Result Diagram: 08/21/1782608/21/17826 Objective Remarks GENERAL: Alert, oriented 3, NAD. SKIN: Warm and dry. HEAD: Normocephalic. EYES: No scleral icterus. No injection or drainage. NECK: Supple, trachea midline. No JVD or lymphadenopathy. CARDIOVASCULAR: Regular rate and rhythm without murmurs, gallops, or rubs. RESPIRATORY: Breath sounds equal bilaterally. No accessory muscle use. GASTROINTESTINAL: Abdomen soft, non-tender, nondistended. MUSCULOSKELETAL: No cyanosis, or edema. BACK: Nontender without obvious deformity. No CVA tenderness. Procedures None A/P Problem List: (1) Septic shock ICD Code: A41.9 - Sepsis, unspecified organism; R65.21 - Severe sepsis with septic shock (2) UTI (urinary tract infection) ICD Code: N39.0 - Urinary tract infection, site not specified Status: Acute (3) Atrial fibrillation with RVR ICD Code: I48.91 - Unspecified atrial fibrillation Status: Acute Assessment and Plan Ms. Jeffries is a pleasant 87-year-old female with a history of atrial fibrillation who presented to the emergency department on 08/19/2017 due to generalized weakness. She reported stomach upset, dry heaves, low-grade fever and chills. 4 weeks prior to this admission patient experienced flulike symptoms. - Septic shock - due to complicated UTI. - Septic shock resolved with transient Levophed use and fluid resuscitation along with abx. - Patient is currently hemodynamically stable. IV Fluid discontinued. - WBC decreased from 16.8 --> 10.8. Lactic acid 3.0 ==> 1.3. - Complicated UTI - Patient has received antibiotics in June 2017. Due to septic shock, we will start patient on broad spectrum abx. - Urine culture is growing gram-negative rods. Blood culture is growing Escherichia coli - sensitive to Cipro. - Stop Cipro IV and start Levaquin 500mg Qday PO. - Acute kidney injury, mild - Severe Hypokalemia with potassium 2.5 - Hypomagnesemia - Hypocalcemia - Creatinine 1.20 --> 1.10 --> 0.89 - Potassium improved to 2.5 --> 3.3 --> 3.5 - replaced potassium and magnesium with IV formulations. - Received 1 g of Calcium gluconate. Started Oral Calcium as well. - Atrial fibrillation - Continue metoprolol 50mg BID. Continue Cardizem acting. - continue Warfarin. Full code. Warfarin. Discharge to SNF today. Problem Qualifiers (1) UTI (urinary tract infection): Qualified Codes: N39.0 - Urinary tract infection, site not specified Nicole Gill DO Aug 23, 2017 12:06 pm
[2017-08-23] MEDS: LATANOPROST 0.005% OPHT SOLN 2.5 ML BTL EACH EYE SCH (12:15)
== END 2017-08-23 14:35 | DRG 871 ==
LOC: PHED 06:56 → PHEDA 09:20 → PHICU 11:31 → PH3A 08-22 18:10
PROVIDERS: ADMIT Hospitalist; ATTEND Hospitalist
DX: A41.51 Sepsis due to Escherichia coli [E. coli] (principal); R65.21 Severe sepsis with septic shock; N17.9 Acute kidney failure, unspecified; E87.2 Acidosis; N39.0 Urinary tract infection, site not specified; E87.6 Hypokalemia; I48.91 Unspecified atrial fibrillation; E83.51 Hypocalcemia; E83.42 Hypomagnesemia; E11.9 Type 2 diabetes mellitus without complications; I50.9 Heart failure, unspecified; I11.0 Hypertensive heart disease with heart failure; K21.9 Gastro-esophageal reflux disease without esophagitis; Z79.01 Long term (current) use of anticoagulants; Z86.711 Personal history of pulmonary embolism; Z88.0 Allergy status to penicillin
CPT/HCPCS: 51702; 71010; 74176; 76937; 80048; 80053; 81001; 82550; 82552; 82948; 83605; 83735; 83880; 84100; 84155; 84484; 85007; 85025; 85027; 85610; 85730; 87040; 87077; 87086; 87186; 87205; 87641; 87804; 93005; 96361; 96365; 96368; J0610; J0744; J1580; J1650; J2185; J2405; J3370; J3475; J3480; J7030; J7040; J7050